=== PATIENT | female | born 1960 | race American Indian/Alaskan Native ===

== ENCOUNTER 2017-03-25 06:09 | Day surgery (SDC) | payer MEDICARE ==
[2017-03-25] MEDS ORDERED: NACL BACTERIOSTATIC INFILTRATI ONE (06:30)
--- NOTE | 2017-03-25 06:44 | Anesthesia Day of Surgery ---
Anesthesia Day of Surgery - Day of Surgery Patient Examined: Yes Patient H&P Reviewed: Yes Patient is NPO: Yes
--- NOTE | 2017-03-25 06:44 | Anesthesia Consultation ---
Anesthesia Consult and Med Hx Date of service: 03/25/17 - Airway Anesthetic Teeth Evaluation: Poor ROM Head & Neck: Adequate Mental/Hyoid Distance: Adequate Mallampati Class: Class II Intubation Access Assessment: Probably Good - Pulmonary Exam CTA: Yes - Cardiac Exam Cardiac Exam: RRR - Pre-Operative Health Status ASA Pre-Surgery Classification: ASA3 Proposed Anesthetic Plan: General - Pulmonary Hx Smoking: No Hx Asthma: Yes (ON DAILY STEROIDS) Hx Sleep Apnea: No (KATRIN PRE SCREEN LOW RISK) - Cardiovascular System Hx Hypertension: Yes (PT DENIES , BUT CLEARANCE SAID YES) - Endocrine Hx Insulin Dependent Diabetes: Yes - Hematic Hx Anemia: Yes - Other Systems Hx Cancer: No
[2017-03-25] MEDS ORDERED: PEPCID PO NR ×2 (07:00→07:14)
[2017-03-25] MEDS ORDERED: NACL 0.9% 1000 ML 1,000 ML IV SCH (07:00)
[2017-03-25] MEDS ORDERED: VERSED IV NR ×2 (07:00→07:14)
[2017-03-25 07:07] LABS: Hematocrit 33.3 % (30.3-42.9); Hemoglobin 11.2 gm/dl (10.1-14.3)
[2017-03-25] MEDS ORDERED: XYLOCAINE MPF 2% ONE (07:15)
[2017-03-25] MEDS ORDERED: DIPRIVAN 10 MG/ML IV ONE ×2 (07:15→08:39)
[2017-03-25] MEDS ORDERED: SUBLIMAZE ONE (07:15)
[2017-03-25] MEDS ORDERED: ZOFRAN ONE (07:15)
[2017-03-25] MEDS ORDERED: DECADRON ONE (07:15)
[2017-03-25] MEDS ORDERED: DILAUDID IV PRN (07:15)
[2017-03-25 07:17] LABS: Anion Gap 23 mmol/L; Blood Urea Nitrogen 22 mg/dL (7-17); Calcium 8.8 mg/dL (8.4-10.2); Carbon Dioxide 23 mmol/L (22-30); Chloride 92.7 mmol/L (98-107); Glucose 333 mg/dL (65-100); Potassium 4.2 mmol/L (3.6-5.0); Sodium 134 mmol/L (137-145)
[2017-03-25] MEDS ORDERED: ZOFRAN IV PRN (08:00)
[2017-03-25] MEDS ORDERED: ROCEPHIN/NS 1 GM/50 ML 1 GM/50 ML BAG IV ONE (08:00)
[2017-03-25] MEDS ORDERED: WATER FOR IRRIG STERILE IR ONE (09:30)
--- NOTE | 2017-03-25 10:02 | Short Stay Summary ---
Short Stay Documentation Date of service: 03/25/17 - History H&P: obtained from office - Allergies and Medications Current Medications: Allergies No Known Allergies Allergy (Verified 03/18/17 09:49) Home Medications Medication Instructions Recorded Confirmed Last Taken Type ALBUTEROL NEB's [Proventil 0.083% 1 dose INHALATION BID 03/18/17 03/25/17 23:35 History NEBS] Chlorthalidone [Thalitone] 25 mg PO QDAY 03/18/17 03/25/17 03/24/17 10:30 History Ferrous Sulfate [Feosol] 325 mg PO QDAY 03/18/17 03/25/17 03/24/17 History Insulin Glargine [Lantus VIAL] 25 unit SUB-Q QHS 03/18/17 03/25/17 03/24/17 23: 30 History Ipratropium/Albuter (Nf) 1 puff INHALATION QID 03/18/17 03/25/17 03/24/17 21:00 History [Combivent Inhaler] predniSONE [Deltasone] 10 mg PO QDAY 03/18/17 03/25/17 03/24/17 23:30 History Active Medications Hydromorphone HCl (Dilaudid) 0.5 mg IV Q10MIN PRN PRN Reason: Pain , Severe (7-10) Stop: 03/25/17 15:00 Sodium Chloride (Nacl 0.9% 1000 Ml) 1,000 mls @ 100 mls/hr IV DIRECT TITI Last Admin: 03/25/17 07:11 Dose: 100 mls/hr - Brief post op/procedure progress note Date of procedure: 03/25/17 Pre-op diagnosis: paddy hydro Post-op diagnosis: same Procedure: cysto, rpg, bur, bstent 6x26, pyelog Anesthesia: GETA Findings: neg Surgeon: VERN LOVING Estimated blood loss: minimal Pathology: none - Hospital course Hospital course: [email or web address] - Disposition Condition at discharge: Good Disposition: DC-01 TO HOME OR SELFCARE Short Stay Discharge Plan Activity: advance as tolerated Diet: advance as tolerated Follow up with: VERN LOVING MD [Staff Physician] - 7 Days
[2017-03-25 10:55] VITALS: BP 144/93
[2017-03-25] MEDS ORDERED: DEMEROL IV PRN (11:00)
--- NOTE | 2017-03-25 13:36 | Post Anesthesia Evaluation ---
- Post Anesthesia Evaluation Patient Participated: Yes Airway Patent: Yes Stable Respiratory Function: Yes Nausea/Vomiting: No Temp > 96.8F: Yes Pain Manageable: Yes Adequeate Hydration: Yes Anesthesia Complications: No
--- NOTE | 2017-03-25 14:36 | Fluoroscopy Report ---
Retrograde pyelogram History: Hydronephrosis. Findings: Supercalender Operator image demonstrates bilateral ureteral stents in good position. The stents were removed. Injection of contrast demonstrates mild fullness of the pelvicalyceal systems bilaterally. Ureteral stents were replaced bilaterally and are again noted to be in satisfactory position on the final images.
--- NOTE | 2017-04-28 10:46 | Operative Report ---
PREOPERATIVE DIAGNOSES: Colostomy, severe diverticulitis, history of bilateral ureteral obstruction. PROCEDURES: Bilateral ureteroscopy, bilateral stent exchange. ESTIMATED BLOOD LOSS: Minimal. CLINICAL INDICATIONS: The patient counseled RCBA, antibiotics, SCDs. The patient has a history of not knowing she has stents in. ____ several months later, had been treated by another physician, had stents changed, has a colostomy but had not followed up with the surgeon who did the diverting colostomy surgery. They were unsure if they were going to be able to do a takedown or not. She is here to get colostomy evaluation. Discussed options regarding ureteral stents or just replacing them knowing after discussion with general surgery that this may be a complicated difficult procedure because of the amount of scarring as previous procedure may ____ localization difficulty ____ ureter. She was counseled on options and wanted to go ahead and proceed with stent exchange and next step towards the ____ for her colostomy. DESCRIPTION OF PROCEDURE: The patient was transferred to OR suite in supine position, anesthesia, dorsal lithotomy, prepped and draped in standard fashion. A 22-Sudanese scope passed ____ bladder. At this point, the right UO was cannulated with a Berlin wire, stent graft pulled out intact. Ureteroscope was passed up the ureter all the way up to the UPJ. No ureteral lesions. There is mild ____ but did immediately pass with no signs of obstruction in ureteral chamber and ureteral lesion. No ureteral strictures. No suspicion there. Then the scope was withdrawn. Wire backbled on the cystoscope. A 6-Sudanese double-J stent was passed over the wire under direct and fluoroscopic visualization. When the wire was removed, there was nice proximal J and nice distal J within the bladder on the right side. On the left side, an identical procedure was done. Wire replaced. Stent removed. Ureteroscope passed up to the ureter up to the UPJ. No ureteral lesions were identified on the left either. No stones, strictures and no signs of obstruction or ureteral pathology. At this point, the wire was backbled on cystoscope. A 6-Sudanese double-J stent was passed over the wire under direct and fluoroscopic visualization. When the wire was removed, there was nice proximal and distal J. Bladder drained. No palpable urethral masses on exam. The patient was awakened and transferred to the PACU in good and stable condition. JOB# [id number] ATS/NTS
== END 2017-03-25 11:09 | disposition home or self-care (01) ==
LOC: OR 06:09
PROVIDERS: ATTEND Urology
DX: Z46.6 Encounter for fitting and adjustment of urinary device (principal); I10 Essential (primary) hypertension; J45.909 Unspecified asthma, uncomplicated; E11.9 Type 2 diabetes mellitus without complications; D50.9 Iron deficiency anemia, unspecified; Z93.3 Colostomy status; Z87.440 Personal history of urinary (tract) infections; Z79.899 Other long term (current) drug therapy; Z79.4 Long term (current) use of insulin; Z98.890 Other specified postprocedural states
CPT/HCPCS: 36415; 52332; 74420; 80048; 82962; 85014; 85018; A4217; C1758; C1769; C2617; J0696; J2175; J2250; J2405; J2704; J2930; J3010; J7030; Q9967; J1100; J1815